=== PATIENT | female | born 1945 | race Caucasian/White ===

== ENCOUNTER 2017-12-07 08:08 | Inpatient (IN) | payer MEDICARE, BC ==
[~2017-12-07] VITALS: Ht 157.5 cm; Wt 90.7 kg
[~2017-12-07 08:08] MED LIST: BYSTOLIC 5 MG5 M1 PO; COLACE 100 MG100 MG PO; DILTIAZEM 24HR120 M2 PO; ELIQUIS2.5 MG PO; LASIX 20 MG TAB20 MG PO; LITE COAT ASPI325 MG PO; LOSARTAN-HCTZ1 EAC1 PO; METAMUCIL PACK3.4 GM PO; OXYCODONE HCL 55 MG PO; POTASSIUM20 PO; VITAMIN D1000 UNI1 PO
[2017-12-07 14:10] LABS: ABSOLUTE BASOPHILS 0.1 thou/uL (0.0-0.2); ABSOLUTE EOSINOPHILS 0.1 thou/uL (0.0-0.7); ABSOLUTE LYMPHOCYTES 1.7 thou/uL (0.8-5.3); ABSOLUTE MONOCYTES 0.6 thou/uL (0.0-1.2); BASOPHILS 0.7 %; EOSINOPHILS 1.2 %; HEMATOCRIT 35.1 % (37.0-47.0); HEMOGLOBIN 11.7 gm/dL (12.0-15.0); LYMPHOCYTES 17.8 %; MCH 32.1 pg (26.0-34.0); MCHC 33.4 g/dL (28.0-37.0); MCV 96.2 fL (80.0-100.0); MONOCYTES 6.5 %; MPV 7.9 fl. (7.2-11.1); NUCLEATED RBCS 0 /100WBC; PLATELET COUNT* 253 thou/uL (150-400); POLYS 73.8 %; RBC 3.65 mil/uL (4.20-5.00); RDW-CV 15.5 % (10.5-14.5); WBC 9.5 thou/uL (4.0-11.0)
[2017-12-07 14:22] LABS: APTT 31.6 Seconds (25.0-31.3); INR 1.1; PROTIME 10.3 Seconds (9.20-11.50)
[2017-12-07 14:24] LABS: ALBUMIN 3.8 g/dL (3.4-5.0); CALCIUM 9.5 mg/dL (8.5-10.1); CREATININE 1.4 mg/dL (0.6-1.3); POTASSIUM 3.5 mmol/L (3.5-5.1); TOTAL BILIRUBIN 0.5 mg/dL (<0.1-1.0); TOTAL PROTEIN 7.7 g/dL (6.4-8.2)
[2017-12-07 15:18] LABS: ESR (SEDRATE) 70 mm/hr (0-30)
[2017-12-18 07:58] VITALS: BP 134/62
--- NOTE | 2017-12-18 12:27 | OP ---
[facility] [address] [place] [address] OPERATIVE REPORT Name: ELEUTERIOEMMAAPPLE K Room: [address] IN .R#: [id number] Admission: 12/18/17 Attend Phys: Mariaelena Andres Discharge: Date of : 41 Report #: [id number] THIS REPORT FOR: //name// CC: Aris Lepe DICTATED BY: Luis Antonio Hollins DATE OF SERVICE: 12/18/2017 PREOPERATIVE DIAGNOSIS: Degenerative joint disease, left knee. POSTOPERATIVE DIAGNOSIS: Degenerative joint disease, left knee. PROCEDURE: Left total knee arthroplasty utilizing Biomet Vanguard. A. A 31 mm asymmetric patella. B. A 67 mm tibial baseplate. C. A 60 mm posterior stabilized femoral component. D. A 12 mm posterior stabilized polyethylene bearing. E. One bag of Sung Palacos bone cement. SURGEON: Stanislaw Romero DO. POWDERED SUGAR SUPERVISOR: Luis Antonio Hollins DO. SECOND POWDERED SUGAR SUPERVISOR: Shaka Hardy DO. ANESTHESIA: General and nerve block. ESTIMATED BLOOD LOSS: 100 mL. ANTIBIOTICS: 2 grams Ancef. TOURNIQUET: None. SPECIMENS: None. DRAINS: None. COMPLICATIONS: None apparent. CONDITION: Stable, transferred to PACU. DISPOSITION: PACU to Med/Surg. [address] [address] OPERATIVE REPORT Name: APPLE MURILLO Room: [address] IN [facility]#: [id number] Admission: 12/18/17 Attend Phys: Mariaelena Andres Discharge: Date of : 41 Report #: [id number] PERTINENT HISTORY AND PHYSICAL: This 72-year-old female suffers from severe degenerative joint disease, left knee. She is status post right total knee arthroplasty. She has failed conservative treatment on the left and elected for the same procedure. We discussed procedure to be performed in great detail including but not limited to the risks, benefits, potential complications, and alternatives including but not limited to infection, blood loss, damage to surrounding tissue, damage to blood vessels and nerves, continued pain, worsening pain, numbness, tingling, weakness, paralysis, loss of function, hardware loosening, hardware failure, intraoperative fracture, postoperative fracture, instability, dislocation, need for further surgery, complications with anesthesia, thrombus, as well as other imponderables and she wishes to proceed. DESCRIPTION OF PROCEDURE: After written consent was obtained, the patient was transferred to the operative suite and placed in the supine position on the operative table. Anesthesia was induced by the anesthesia team. A well-padded pneumatic tourniquet was placed on the left thigh. The left lower extremity was sterilely prepped and draped with Hibiclens and ChloraPrep x 2. Timeout was performed. Correct patient, surgical site, procedure to be performed, antibiotics and surgeon were confirmed. Marking pen used to zonia out correct location and direct midline incision. Incision was made with a 20 blade knife followed by dissection of superficial tissues. The capsule layer was identified and the medial parapatellar tendon splitting arthrotomy was performed with a new 10 blade knife. The patella was everted. Dissection carried down to the level of the bone. The intramedullary femoral reamer was used to ream the femoral canal followed by insertion of the intramedullary femoral guide. We pinned the appropriate pin block in place to check the cut and took an extra 1 mm off the distal femoral cut. The cut was made in the usual fashion. Next, the extramedullary tibial guide was placed on the external tibia. It was centered down the medial third of the tibial tubercle down the tibial crest down the center of the talus down the second metatarsal. We measured 10 mm from the high lateral side and pinned the block in place in the appropriate amount of rotation. We then put a cross pin in place and made the proximal tibial cut in the usual fashion. The residual bone was removed. The guide was removed. The knee was taken into full extension. Extension block was placed and the full extension was achieved. The pins were pulled. Knee was taken back to flexion, posterior cartilage checked and the femoral sizer was placed and the knee was drilled in 3 degrees of external rotation and sized to be a size 60. A 60-mm 4-in-1 cutting block was impacted and pinned in place. The anterior, posterior chamfer cuts were made in the usual fashion. All residual bone was removed. Great care taken to protect and identify all blood vessels, nerves and ligaments and structures in the field during the bony cuts. Next, the menisci were excised in the usual fashion with electrocautery. The proximal tibia was sized to be the above sized. The trial femur was placed. A trial poly was placed and the knee was brought into full extension. A full extension was achieved. Next, the patella was cut using a Sung patellar reamer [place] [address] OPERATIVE REPORT Name: APPLE MURILLO Room: [address] IN ..#: [id number] Admission: 12/18/17 Attend Phys: Mariaelena Andres Discharge: Date of : 41 Report #: [id number] above-mentioned size. Trial was placed and excellent patellar tracking was noted. The knee was taken throughout range of motion and flexion and extension gaps were found to be symmetric and stable to varus valgus stress testing and stable throughout range of motion with a size 12 mm polyethylene bearing. Next, the trial femur, poly and patella were removed and the proximal tibia was prepared with reamer and keel punch in the usual fashion. Trial tibia was removed. The bone ends were thoroughly irrigated with pulse lavage. Posterior capsular block was performed. The one bag of Sung Palacos bone cement was mixed and the above-mentioned components were impacted and cemented into place in the usual fashion. All residual cement was removed with Alma Winona. With a trial again, a 12 mm was found to be the correct size and the wound was again thoroughly irrigated and the final polyethylene bearing was inserted and clipped in place and was taken through range of motion. The same stability was noted. Flexion and extension gaps were found to be symmetric and it was stable to varus valgus stress testing. It was stable throughout. Next, vancomycin powder was sprinkled intraarticularly and the knee was brought into 90 degrees of flexion. The capsular layer was closed with a #1 Vicryl suture in [id number]-kg-dbrom interrupted fashion followed by running #1 Stratafix suture in running fashion. The subcutaneous layer was irrigated and vancomycin powder sprinkled. Subcutaneous layer was closed with a 2-0 Monocryl suture in interrupted fashion followed by subcuticular closure with 2-0 Monocryl suture in interrupted buried knot technique, closure of the skin with a running 3-0 Stratafix suture followed by Dermabond skin glue. Mepilex dressing followed by ROSALINA hose were used as sterile dressing. Anesthesia was reversed by the anesthesia team. The patient was transferred back to the transfer cart and transferred to the postanesthesia care unit in stable condition. The patient appeared to tolerate this procedure well. There are no obvious complications apparent. Needle and sponge counts correct per the operating room team. DISPOSITION: Weightbear as tolerated on left lower extremity, discharged to the floor once stable per anesthesia. She will be admitted to medicine. <ELECTRONICALLY SIGNED> By: Stanislaw Romero DO 12/18/17 1227 [id number] Romero DO /nt
[2017-12-18 13:10] VITALS: BP 115/53
[2017-12-18 15:30] VITALS: BP 117/58
[2017-12-18 20:00] VITALS: BP 117/66
[2017-12-19 00:28] VITALS: BP 130/82
[2017-12-19 04:26] VITALS: BP 110/47
[2017-12-19 05:51] LABS: CALCIUM 8.1 mg/dL (8.5-10.1); CREATININE 1.2 mg/dL (0.6-1.3); MAGNESIUM 1.6 mg/dL (1.8-2.4); POTASSIUM 3.4 mmol/L (3.5-5.1)
[2017-12-19 16:42] VITALS: BP 136/53
[2017-12-19 20:00] VITALS: BP 144/66
[2017-12-20 00:31] VITALS: BP 126/59
[2017-12-20 04:22] LABS: HEMATOCRIT 27.8 % (37.0-47.0); HEMOGLOBIN 9.6 gm/dL (12.0-15.0); MCH 32.8 pg (26.0-34.0); MCHC 34.5 g/dL (28.0-37.0); MCV 95.2 fL (80.0-100.0); MPV 8.4 fl. (7.2-11.1); RBC 2.93 mil/uL (4.20-5.00); RDW-CV 15.9 % (10.5-14.5); WBC 9.1 thou/uL (4.0-11.0)
[2017-12-20 04:32] LABS: CALCIUM 8.5 mg/dL (8.5-10.1); MAGNESIUM 2.4 mg/dL (1.8-2.4); POTASSIUM 3.1 mmol/L (3.5-5.1)
[2017-12-20 04:45] VITALS: BP 101/80
[2017-12-20 04:46] LABS: CREATININE 1.2 mg/dL (0.6-1.3)
[2017-12-20 08:05] VITALS: BP 112/62
[2017-12-20 11:04] VITALS: BP 112/62
[2017-12-20] MEDS ORDERED: ELIQUIS2.5 MG PO (11:09)
[2017-12-20] MEDS ORDERED: OXYCODONE HCL5 M1 PO (11:09)
[2017-12-20] MEDS ORDERED: OXYCODONE HCL 55 MG PO (11:31)
[2017-12-20 11:32] VITALS: BP 112/62
--- NOTE | 2017-12-20 13:08 | S ---
[address] [address] SURGICAL PATH RPT PROCEDURE Name: DEVIKA KEN Room: [address] IN ..#: [id number] Admission: 12/18/17 Date of : 41 Discharge: Report #: [id number] Path Case #: [id number] PATHOLOGY REPORT COLLECTION DATE: 12/18/2017 RECEIVED DATE: 12/18/2017 SUBMITTING PHYS: Dr. Stanislaw Romero OTHER PHYS: Dr. Adria Cordon SPECIMEN(S) RECEIVED: A.Left knee degenerative joint disease * * * * * * * * * * * * FINAL DIAGNOSIS: Left knee bone and tissue, total knee replacement: - Benign synovium and meniscus and benign bone and cartilage with severe degenerative changes. (BG:maite; 12/20/2017) PATHOLOGIST: Epifanio Alarcon M.D. REPORT ELECTRONICALLY SIGNED BY: Epifanio Alarcon M.D. DATE/TIME: 12/20/2017 13:07 * * * * * * * * * * * * GROSS PATHOLOGY: Received in formalin labeled "Devika Ken, left knee bone and tissue," are multiple segments of bone, including tibial plateau, measuring 13.1 x 9.6 x 2.1 cm in aggregate dimensions admixed with soft tissue; meniscus is present. The specimen shows focal eburnation of the articular surfaces. Structural Design Engineer sections of bone and soft tissue are submitted in cassette A1, following decalcification. (DAC; 12/19/2017) CLINICAL HISTORY: Left knee degenerative joint disease INITIAL CPT CODE(S): A; 46387, 84455 Professional services performed by [facility] at [facility] [address] [place] [address] Technical services performed by [facility] at [address] [place] [address], [facility] [address] [place] [address]. [address] [address] SURGICAL PATH RPT PROCEDURE Name: DEVIKA KEN Room: [address] IN [facility].#: [id number] Admission: 12/18/17 Date of : 41 Discharge: Report #: [id number] Path Case #: [id number] [facility] [address] [address] PHONE: [phone] DIRECTOR: Omega Ramirez M.D. * * * END OF REPORT * * *
== END 2017-12-20 17:01 | disposition home health service (06) | DRG 470 ==
LOC: M.PRE 08:08 → M.TBA 12-18 06:56 → M.ORTHSURG 12-18 06:56 → M.PRE 12-18 08:13 → M.ORTHSURG 12-18 12:46
PROVIDERS: Internal Medicine; Orthopaedic Surgery; ADMIT Internal Medicine
PROC: 0SRD0J9 Replacement of Left Knee Joint with Synthetic Substitute, Cemented, Open Approach (ICD-10-PCS; principal; 2017-12-18)
DX: M17.12 Unilateral primary osteoarthritis, left knee (principal); I10 Essential (primary) hypertension; Z79.82 Long term (current) use of aspirin; Z79.899 Other long term (current) drug therapy; Z90.710 Acquired absence of both cervix and uterus